=== PATIENT | male | born 1985 | race Caucasian/White ===

== ENCOUNTER 2020-02-16 01:59 | Emergency (ER) | payer SELFPAY ==
--- NOTE | 2020-02-16 02:01 | ED.GENADUL_ITS ---
Discharge Plan Disposition Patient Disposition: [facility] Condition: Good Discharge Details Clinical Impression: Abrasion, multiple sites, Lip injury Primary Care Provider: Unknown,Unknown ED Provider: Phil Cabrera Home Meds and New Rx's Prescriptions: No Action No Known Home Meds RF: 0 Discharge Instructions Instructions: Head Injury (ED), Abrasion (ED) Additional Instructions: Keep your wounds clean and dry. Rinse your mouth with salt water especially after eating or drinking something until laceration healed. Ibuprofen or acetaminophen as needed for pain. Return to ED for worsening headache, mental status change, persistent vomiting, signs of wound infection. Discharge Data Discharge Date/Time-TO BE ENTERED AT DEPARTURE: 02/16/20 02:20 Medical Decision Making Patient with injuries to face and knee. Not forthcoming in what occurred or how it occurred. Is awake and alert currently with normal speech, mentation, gait. No facial bony tenderness. Right inner lip laceration that is superficial and does not require sutures. Abrasions and lacerations around the right knee and right thigh again nothing requiring sutures. Does not appear to have bony tenderness anywhere. Lungs are clear. He is neurologically intact. Wounds were cleaned up and he is offered ibuprofen. He is released into police custody. HPI General Mode of arrival: ambulatory . Date/Time Provider Initiated Documentation: 02/16/20 02:01 . Limitations to Documentation: no limitations . Information obtained by: patient, police and RN notes reviewed . HPI Narrative: Patient presents to ED in police custody for evaluation after being taken into custody. Patient not very forthcoming with what happened tonight. Police report that he was not in off during conversations with him as well as mental health. Here he is awake and alert and appropriate. Complains of face and lip pain as well as knee discomfort. Will not elaborate on anything that occurred. No complaint of headache, chest pain, abdominal pain, shortness of breath. Related Data Home Medications Medication Instructions Recorded Confirmed Unknown [No Known Home Meds] 02/16/20 02/16/20 Allergies Allergy/AdvReac Type Severity Reaction Status Date / Time No Known Allergies Allergy Unverified 02/16/20 02:12 Review of Systems Narrative: As documented in HPI otherwise negative as below. Const: no fever, chills Resp: no cough, SOB CV: no CP GI: no abdominal pain, nausea, vomiting Neuro: no headache, focal weakness, confusion [facility] Medical History HTN (hypertension) Surgical History No significant past surgical history Social History Smoking/Tobacco Use Status: Current every day Tobacco Type: cigarettes Drug use: Occasionally Substance use type: marijuana Do you feel safe at home: Yes Do you feel safe in your relationship?: Yes Exam Narrative Exam Narrative: Vitals: Afebrile. Slight tachycardia and elevated blood pressure. Normal room air pulse ox. Const: WDWN male in NAD. Handcuffed and in police custody. HEENT: NC. No facial bony tenderness. No nasal bony tenderness. Dried blood bilateral nares and upper lip. Dentition intact. Superficial laceration left inside upper lip. Eyes: PERRL and EOMI Neck: Supple. Trachea midline. No midline tenderness. Lungs: Normal respiratory effort. Lungs are clear. Cor: RRR without murmur/gallop. Neuro: A+O x 3. Normal speech, mentation, gait. Cranial nerves II - XII grossly intact. No gross motor or sensory deficit. Ext: No obvious deformity. Upper extremities and handcuffs behind his back. Lower extremities with normal range of motion. Skin: Warm and dry. Multiple superficial lacerations and abrasions to the right knee and thigh. Nothing requiring sutures.
[2020-02-16 02:05] VITALS: BP 137/97; PULSE 110; RESP 20; TEMP 35.7; O2SAT 100
[2020-02-16] MEDS: Ibuprofen 600 MG TAB PO (02:17)
== END 2020-02-16 02:20 | disposition home or self-care (01) ==
LOC: ER 02:24
PROVIDERS: Emergency Provider Emergency Medicine
DX: S01.511A Laceration without foreign body of lip, initial encounter (principal); S80.211A Abrasion, right knee, initial encounter; R51 Headache; Y04.0XXA Assault by unarmed brawl or fight, initial encounter; Y92.149 Unspecified place in prison as the place of occurrence of the external cause; I10 Essential (primary) hypertension
CPT/HCPCS: 99285; 99283

== ENCOUNTER 2020-04-16 09:16 | Emergency (ER) | payer MEDICAID, SELFPAY ==
[2020-04-16 09:22] VITALS: BP 138/82; PULSE 100; RESP 20; TEMP 36.3; O2SAT 100
--- NOTE | 2020-04-16 09:23 | W.ED.GENAD ---
Discharge Plan Disposition Patient Disposition: HOME Condition: Stable Discharge Details Clinical Impression: Acute UTI Primary Care Provider: Unknown,Unknown ED Provider: Alix Fermin Home Meds and New Rx's Prescriptions: New cephalexin 500 mg tablet 500 mg PO BID 7 Days Qty: 14 RF: 0 Discharge Instructions Instructions: Urinary Tract Infection in Men (ED) Additional Instructions: Follow up with primary care provider in 3-5 days. Return to ED sooner if any worsening or concerns. Increase oral fluids. Please take Tylenol or Ibuprofen with food every 4-6 hours as needed for pain and swelling. Take antibiotics as directed. Culture results will return in 48 to 72 hours. If you are positive you will be notified. Discharge Data Discharge Date/Time-TO BE ENTERED AT DEPARTURE: 04/16/20 10:20 Medical Decision Making 34-year-old male presents to the ER with dysuria, penile discharge and some right groin swelling for approximately 1 week. He denies any concern for STD. Denies any testicle swelling. No fever no abdominal pain no nausea vomiting diarrhea. Urinalysis collected and sent for gonorrhea chlamydia and urinalysis. Culture is pending at this time. Urine shows specific gravity greater than 1030, 30 protein, trace ketones, trace blood, small leukocytes greater than 50 WBCs. No nitrates culture is pending at this time. Patient was treated empirically for possible gonorrhea chlamydia due to penile discharge. He was given 500 mg Rocephin IM and 1 g azithromycin p.o. in department. Prescription written for cephalexin 5 mg twice a day x7 days for UTI. Instructed on pelvic rest and abstinence until partners are tested and treated, verbalized understanding. HPI General Mode of arrival: ambulatory. Date/Time Provider Initiated Documentation: 04/16/20 09:17. Limitations to Documentation: no limitations. Information obtained by: patient. HPI Narrative: 34-year-old male presents to the ER with dysuria, penile discharge and some right groin swelling for approximately 1 week. He denies any concern for STD. Denies any testicle swelling. No fever no abdominal pain no nausea vomiting diarrhea. Related Data Home Medications Medication Instructions Recorded Confirmed cephalexin 500 mg PO BID 7 Days #14 tab 04/16/20 Previous Rx's Medication Instructions Recorded cephalexin 500 mg PO BID 7 Days #14 tab 04/16/20 Allergies Allergy/AdvReac Type Severity Reaction Status Date / Time No Known Allergies Allergy Unverified 02/16/20 02:12 General SONIA: 3 Review of Systems Narrative: Constitutional: Negative for weight loss, alert and oriented, well groomed, normal body habitus, appears comfortable. HEENT: Denies trauma, headaches, blurry vision, nasal discharge, sore throat, trouble swallowing. Chest: Denies chest pain, palpitations, irregular rhythm, hypertension. Respiratory: Denies Shortness of breath, cough, hemoptysis. GI: Denies abdominal pain, nausea, vomiting, diarrhea, constipation. : Denies flank pain, rectal bleeding. Positive dysuria positive penile discharge. Neuro: Denies dizziness, blurry vision, weakness, syncope, headache or facial numbness. Hematologic: Denies easy bruising, intolerance to heat or cold, hair loss. [facility] Medical History HTN (hypertension) Surgical History No significant past surgical history Social History Smoking/Tobacco Use Status: Current every day Tobacco Type: cigarettes Smoking risk assessment performed?: Yes Drug use: Occasionally Substance use type: marijuana Do you feel safe at home: Yes Do you feel safe in your relationship?: Yes Exam Narrative Exam Narrative: Constitutional: Alert and oriented x3. Appears stated age. Normal body habitus. Head: Normocephalic, no trauma. Eyes: Pupils PERRLA, Red reflex noted, EOM's intact. Eyelids symmetrical without lesions, discharge, or swelling. ENT: Bilateral TM's WNL, External ear normal to inspection, no mastoid TTP, swelling, or erythema, Nasal turbinates WNL, no nasal discharge. Normal dentition, Posterior pharynx WNL, no exudate. Chest: RRR, Normal S1, S2, distal pulses intact. Resp: Lungs clear to auscultation bilaterally, no wheezes, rales, or rhonchi. Genitourinary: [employer] at bedside for witness, no external lesions noted to the penile shaft or meatus, there is some clearish type discharge noted from the ureteral meatus. No significant swelling to the testicles no tenderness with palpation, no groin swelling or redness noted. Male General Exam: Yes normal external exam Penis: normal penis Meatus: meatal discharge Scrotum: scrotum normal Testes: normal
[2020-04-16 09:38] LABS: Bilirubin Negative (Negative); Blood Trace-intact (Negative); Clarity Sl Cloudy (Clear); Glucose Negative (Negative); Ketones Trace mg/dL (Negative); Leukocyte Esterase Small (Negative); Nitrite Negative (Negative); Specific Gravity >= 1.030 (1.005-1.025); Urobilinogen 0.2 EU/dL (Up TO 0.2)
[2020-04-16] MEDS: Azithromycin 250 MG TAB 1000 MG PO (09:53)
[2020-04-16] MEDS: cefTRIAXone 250 MG VIAL (09:53)
[2020-04-16 10:09] LABS: C & S Indicated? Yes; WBC >50 HPF (0-5)
[2020-04-16 10:18] VITALS: BP 115/72; PULSE 100; RESP 20; TEMP 36.4; O2SAT 98
--- NOTE | 2020-04-16 11:12 | NUR.NOTE ---
Referral to Care Management to establish pcp.Nursing Note:
--- NOTE | 2020-04-17 11:57 | PDOC.ERCMPRO ---
- If Service Date Differs Date of service: 04/17/20 Time of Service: 11:57 Care Management Progress Note Jez is seen in the ED on 04/16/20 for a UTI. At the request of Alix Fermin NP, CM coordinates a referral to Kendra Sutherland MD, on-call provider, of [facility], to assist Jez in obtaining a follow up appointment and in establishing care with a PCP. He has Medicaid for insurance.
[2020-04-18 23:06] LABS: Chlamydia amplified RNA Negative (Negative); Source URINE
[2020-04-20 10:46] LABS: N gonorrhoeae amplified RNA Positive (Negative)
--- NOTE | 2020-04-20 11:37 | W.ED.FU ---
Urine culture positive for gonorrhea. Patient was treated with 500 mg Rocephin IM on his recent ED visit for possible gonorrhea. Attempted to call phone number listed on chart but no answer and unable to leave voicemail. Will send patient paper copy of his results to his listed address.
--- NOTE | 2020-05-03 11:14 | NUR.NOTE ---
Nursing Note:Attempted to mail Chlamydia/GC results to patient. The results came back RETURN TO SENDER. Ca Celestin
--- NOTE | 2020-05-03 11:24 | NUR.NOTE ---
Nursing Note: Positive result attempted to be mailed, received back today. No good address or phone number for pt. Pt had already received treatment for this proactively by provider on date of service. Attempted to verify with [facility] lab in [place] @ [phone] if reporting to [place] was done direct from their lab or if our lab had to report this. Transferred to Reportable Disease division and left @ 1123 on today's date with phone number for ED left for clarification.
--- NOTE | 2020-05-03 11:30 | NUR.NOTE ---
Nursing Note: Clarified with our in house lab, any positive send outs to [facility] are reported to state of [place] by Rubio Cruz. No further f/u is required for reporting.
--- NOTE | 2020-05-03 11:41 | NUR.NOTE ---
Nursing Note: Mailing address from pt's own self-subscribed Medicaid used to send results by mail after [employer]'s approval.
--- NOTE | 2020-05-07 12:12 | W.ED.FU ---
Date of service: 05/07/20 Time of Service: 12:12 Follow Up Plan: Call made and spoke with patient regarding results of positive for gonorrhea. Patient verbalized understanding. Patient denies having any further symptoms at this time. All questions and concerns were answered to the best my ability.
== END 2020-04-16 10:20 | disposition home or self-care (01) ==
PROVIDERS: Emergency Provider Registered Nurse Emergency
DX: A54.09 Other gonococcal infection of lower genitourinary tract (principal); N39.0 Urinary tract infection, site not specified; I10 Essential (primary) hypertension
CPT/HCPCS: 87491; 87591; 96372; 99284; 81003; 81015; 87086; 99283; J0696

== ENCOUNTER 2020-07-06 17:10 | Emergency (ER) | payer MEDICAID, SELFPAY ==
--- NOTE | 2020-07-06 17:14 | ED.GENADUL_ITS ---
Discharge Plan Disposition Patient Disposition: HOME Condition: Stable Discharge Details Clinical Impression: Cellulitis and abscess of upper extremity Primary Care Provider: None,None ED Provider: Carolina Cross Home Meds and New Rx's Prescriptions: New clindamycin HCl 150 mg capsule 450 mg PO TID 7 Days Qty: 63 RF: 0 Discharge Instructions Instructions: Cellulitis (ED) Additional Instructions: Your abscess was drained today. Please keep this area clean, dry and covered. Elevate the extremity and try to rest. Please take the antibiotics as prescribed. Even if symptoms improve, please take the entire course. Please return tomorrow afternoon for reevaluation. I will refer you to primary care as well, care management will reach out to you to schedule follow-up appointment. If in the meantime, you develop fever/chills, spreading of the redness or other new/worsening to seek care urgently once again Covid testing is pending for your upper respiratory infection. Please quarantine until his results have returned. Stand Alone Forms: PENDING COVID-19 TESTING, Work Release Medical Decision Making Patient is a pleasant 34-year-old [id number] male presenting today with chief complaint of left arm discomfort. He reports that he noted small abrasion on the dorsal aspect of the left hand a few days ago. As well he began developing erythema around the second 3 days ago. Since then, the erythema has been spreading despite noting the area of swelling to the dorsal aspect of the hand as the source of the abrasion. He denies any numbness or tingling. Has had no fevers or chills. Around the same time he began developing the symptoms, he and his family all began having symptoms of upper respiratory infection with rhinorrhea, congestion and cough. He does report a diminished sense of taste. Has not had any fevers. No difficulty breathing or shortness of breath. On exam, patient does have some clear rhinorrhea. He has normal posterior oropharynx, lungs are clear. Patient is afebrile, O2 96% on room air. Exam of the left upper extremity significant for an abscess approximately 3 cm x 1.5 cm. The proximal aspect of this is blanched and does have an overlying scab. Surrounding erythema on the dorsal aspect of the hand. None on the palmar side at the hand. This does not involve the digits. He is full range of motion of all of his fingers. No evidence to suggest intra-articular infection or ligamentous involvement. Cellulitis surrounding the abscess does come approxim ately anything 1 cm streaks that comes just proximal to the elbow. Patient I discussed concerns. His upper respiratory infection, particularly as this does involve a number of members of his family, has been concerned for potential COVID-19. We will test him today. He does not appear to have any severe symptoms, is not hypoxic. Patient also has findings consistent with abscess and cellulitis. Cellulitis does sound to have been evolving over the past 24 hours and I do feel that dosing of IV antibiotics would be appropriate. We will dose with IV clindamycin. He does not appear systemically ill. We also discussed the risk/benefits as well as expected procedural steps associated with incision and drainage. He voiced understanding and wished to proceed. Please see procedure note. Patient tolerated this well. It was performed using standard sterile technique. A copious amount of thick, purulent discharge was expressed. This was sent for culture. Patient tolerated procedure well. Loculations were broken up and abscess was irrigated. Patient will continue on oral clindamycin. He does not have a primary care. I have asked her care management to ensure that he has follow-up this week. However, in the interim I would like for him to return for wound check tomorrow. Work note will be given. Patient will be tested for COVID-19 and will quarantine until his results have returned. Strict return precautions were discussed. All of his questions and concerns were addressed and he is in agreement this plan HPI General Mode of arrival: ambulatory . Date/Time Provider Initiated Documentation: 07/06/20 17:13 . Limitations to Documentation: no limitations . Information obtained by: patient and RN notes reviewed . History of Present Illness 34 year old M presents to the emergency department with the chief complaint of cellulitis left hand, described as moderate, with intensity rated at 8. Quality is described as burning and aching, and is localized to the left and upper extremity. Patient reports no radiation. Patient started experiencing this day(s) (3) and it has been constant. Immobilization improves symptom(s), Movement worsens symptoms . Patient notes cough; denies chest pain, diaphoresis, fever/chills, loss of appetite, nausea/vomiting, shortness of breath and weakness. Patient did receive the following treatments prior to arrival, none Related Data Home Medications Medication Instructions Recorded Confirmed clindamycin HCl 450 mg PO TID 7 Days #63 cap 07/06/20 Previous Rx's Medication Instructions Recorded clindamycin HCl 450 mg PO TID 7 Days #63 cap 07/06/20 Allergies Allergy/AdvReac Type Severity Reaction Status Date / Time No Known Allergies Allergy Unverified 02/16/20 02:12 General SONIA: 3 Review of Systems Constitutional Constitutional: Reports as per HPI and Denies headache(s) Eyes Eyes: Reports as per HPI, Denies eye discharge and Denies irritation ENT Ears, Nose, Mouth, and Throat: Reports as per HPI and Denies headache(s) Cardiovascular Cardiovascular: Reports as per HPI, Denies chest pain and Denies dyspnea Respiratory Respiratory: Reports as per HPI and Denies dyspnea Gastrointestinal Gastrointestinal: Reports as per HPI, Denies abdominal pain, Denies change in bowel habits, Denies nausea and Denies vomiting Integumentary/Breasts Skin/Breast: Reports as per HPI and Reports erythema Neurologic Neurologic: Reports as per HPI and Denies headache(s) [facility] Medical History HTN (hypertension) Surgical History No significant past surgical history Social History Smoking/Tobacco Use Status: Current every day Tobacco Type: cigarettes Smoking risk assessment performed?: Yes Alcohol Intake: former Drug use: Occasionally Substance use type: marijuana Current gender identity: male Do you feel safe at home: Yes Do you feel safe in your relationship?: Yes Exam Const General: cooperative, healthy appearing, comfortable, no acute distress, well developed and well groomed Nutritional Appearance: average body habitus and well nourished Orientation: alert and awake [facility] Head: normal to inspection, normocephalic and atraumatic Ears: hearing grossly normal bilaterally, external ears normal and TM's normal bilaterally General nose exam: external nose normal and nares normal Face and sinus: normal facial exam, sinuses nontender and face symmetric Mouth: oral mucosae normal, lip normal, tongue normal, oropharynx normal and moist mucous membranes Teeth and gingiva: dentition normal Throat: posterior oropharynx normal, tonsils normal and uvula midline Eyes General: appearance normal, both eyes and all related structures Neck Neck: normal visual inspection, full ROM, no lymphadenopathy and no meningeal signs Resp Effort & Inspection: normal respiratory effort, able to speak in complete sentences and no respiratory distress Auscultation: clear to auscultation bilaterally, no rales, no rhonchi and no wheezes Cardio Rate: regular rate Rhythm: regular rhythm Heart Sounds: S1 normal and S2 normal Skin General skin exam: erythema Neuro General: patient alert and patient awake Cognition: normal cognition Speech: speech normal Gait: normal gait Extrem Right upper extremity: normal to inspection Left upper extremity: full ROM, normal capillary refill and no joint enlargement Hand/finger images: 1. area of palpable abscess 2. area of cellulitis, thin 1cm thick streak comes up just proximal to the elbow. No lymphadenopathy. No pain in the abscess. No induration. Patient has full range of motion both active and passive without evidence of discomfort at the elbow wrist and digit. Psych Appearance: grossly normal and well kempt Mental Status: mental status grossly normal Speech and Movement: speech and movement normal Procedures Abscess I/D Site: Hand Side (if applicable): Left Sedation/analgesia: None Local Anesthetic: Lidocaine 1% and With Epi Amount of anesthesia used (mL): 5 Technique: Incised with #11 Blade Amount of fluid expressed (mL): 5 Irrigation: Yes Packing used?: None Complications: Other (none)
[2020-07-06 17:17] VITALS: BP 151/90; PULSE 109; RESP 16; TEMP 37.1; O2SAT 96
[2020-07-06] MEDS: CLINDAMYCIN 600 MG/50 ML BAG 100 MG IVPB (18:10)
[2020-07-06 18:16] LABS: Abs Immature Grans 0.03 10^3/uL (0.0-0.06); Absolute Basophil Count 0.03 10^3/uL (0.0-0.2); Absolute Eosinophil Count 0.16 10^3/uL (0.0-0.7); Absolute Monocyte Count 1.07 10^3/uL (0.1-0.8); Basophils % 0.2; Eosinophils % 1.2; HCT 46.3 % (40.0-50.0); HGB 15.5 g/dL (13.5-17.5); Immature Grans % 0.2; MCH 29.3 pg (27.0-33.0); MCHC 33.5 % (32.0-36.0); MCV 87.5 fL (80-95); MPV 9.9 fL (8.0-11.0); Monocytes % 8.2; Neutrophils % 82.2; Nucleated RBC 0 %; Platelet Count 215 10^3/uL (130-400); RBC 5.29 10^6/uL (4.36-5.78); RDW 12.5 % (11.8-14.1); WBC 13.06 10^3/uL (4.4-10.8)
[2020-07-06 18:17] LABS: Absolute Lymphocyte Count 1.04 10^3/uL (1.2-3.4); Absolute Neutrophil Count 10.74 10^3/uL (1.2-6.7)
[2020-07-06 18:32] LABS: ALT 26 U/L (16-63); AST 15 U/L (15-37); Albumin 3.9 g/dL (3.4-5.0); Alkaline Phosphatase 92 U/L (46-116); Anion Gap 8.7 mmol/L (3-11); BUN 13 mg/dL (7-18); Bilirubin, Total 0.4 mg/dL (0.2-1.0); CO2 29.3 mmol/L (21.0-32.0); Calcium 8.9 mg/dL (8.5-10.1); Chloride 102 mmol/L (98-107); Glucose 110 mg/dL (74-106); Potassium 3.8 mmol/L (3.5-5.1); Sodium 140 mmol/L (136-145); Total Protein 8.1 g/dL (6.4-8.2)
[2020-07-06] MEDS: Normal Saline 1,000 ML 1000 ML IV (18:35)
[2020-07-06] MEDS: Normal Saline Flush 10 ML SYR IVP (18:44)
[2020-07-06 19:30] VITALS: BP 148/93; PULSE 103; RESP 16; O2SAT 97
--- NOTE | 2020-07-06 19:54 | NUR.NOTE ---
REFERRAL SENT TO CM FOR HELP WITH ESTABLISHING pCP END OF WEEK Luis Antonio Tello Note:
--- NOTE | 2020-07-07 12:51 | NUR.NOTE ---
Nursing Note: Lab called with positive MRSA result. Pt was given prescription for clindamycin. Dr. Robbin loco. Ca Celestin
[2020-07-08 12:42] LABS: COVID-19 RT-PCR UVMMC Result Negative (Negative)
--- NOTE | 2020-07-09 11:59 | NUR.NOTE ---
07/09/20 @ [id number], left message on voicemail to return call to ED for test results.
== END 2020-07-06 19:50 | disposition home or self-care (01) ==
PROVIDERS: Emergency Provider Physician Assistant
DX: L03.114 Cellulitis of left upper limb (principal); L02.414 Cutaneous abscess of left upper limb; B95.62 Methicillin resistant Staphylococcus aureus infection as the cause of diseases classified elsewhere; Z03.818 Encounter for observation for suspected exposure to other biological agents ruled out
CPT/HCPCS: 10060; 36415; 80053; 87077; 90471; 96361; 96365; 99282; U0003; 85025; 87070; 87186; 87205; 99281

== ENCOUNTER 2020-07-08 12:05 | Emergency (ER) | payer MEDICAID, SELFPAY ==
--- NOTE | 2020-07-08 12:09 | ED.GENADUL_ITS ---
Discharge Plan Disposition Patient Disposition: HOME Condition: Stable Discharge Details Clinical Impression: Cellulitis and abscess of upper extremity, Folliculitis Primary Care Provider: Ghassan Faulkner ED Provider: Paul Isaacs Home Meds and New Rx's Prescriptions: New ibuprofen 800 mg tablet 800 mg PO Q8H PRNQty: 30 RF: 0 Continued clindamycin HCl 150 mg capsule 450 mg PO TID 7 Days Qty: 63 RF: 0 Discharge Instructions Instructions: Cellulitis (ED), Folliculitis (ED) Additional Instructions: Your wound on your hand looks like it is improving. Keep the area clean and dry, change antibiotic dressing daily. You may apply warm compresses to your hand and to your folliculitis. No additional antibiotics required for the folliculitis as you are already taking clindamycin. I recommend taking clindamycin as directed. Please watch for new or worsening symptoms and return to the ER for any concerns. It appears as though on Monday my colleague set you up with care management, please continue to talk with them to set up outpatient primary care follow-up. Medical Decision Making Patient presents for a I&D reevaluation. After reviewing the medical record from 2 days ago and by the patient's account, his infection appears to be improving. No signs of lymphangitic streaking. The area is very localized to the hand and wrist. Full range of motion. Neuro, vascular, tendon intact. Appears as I would expect status post I&D 2 days ago. Patient also requests that I evaluate his ingrown hair. It appears as though he had a small area of folliculitis to his perineum which he tells me he squeezed and blood came out. There is no tenderness, fluctuance, induration, pointing abscess. At this time there is no indication for I&D. Patient is already taking clindamycin, no need for additional antibiotic therapy. Recommend warm soaks or compresses to his perineum. His left hand was again dressed with an antibiotic dressing. Patient has no additional questions or concerns and is comfortable discharge at this time. Medical Records Medical records reviewed: Yes I reviewed the patient's medical records. HPI General Mode of arrival: ambulatory . Date/Time Provider Initiated Documentation: 07/08/20 12:07 . Limitations to Documentation: no limitations . Information obtained by: patient . HPI Narrative: This is a 34-year-old gentleman, [id number], who was seen in the ER 2 days ago. At that time he had a left hand incision and drainage of an abscess. He was placed on clindamycin. He was told to come back to the ER for wound reevaluation, unable to come yesterday so came today. He reports that his redness is much improved. Pain is improving. Denies numbness, tingling, weakness, fever. The wound is still draining. Tetanus status is up-to-date. He reports that under his scrotum yesterday he noticed ingrown hair, he squeezed it and blood came out, is now requesting that this gets checked as well. Denies scrotal or penile pain. Denies dysuria. No additional concerns or complaints. 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 Related Data Home Medications Medication Instructions Recorded Confirmed clindamycin HCl 450 mg PO TID 7 Days #63 cap 07/06/20 ibuprofen 800 mg PO Q8H PRN #30 tab 07/08/20 Previous Rx's Medication Instructions Recorded clindamycin HCl 450 mg PO TID 7 Days #63 cap 07/06/20 ibuprofen 800 mg PO Q8H PRN #30 tab 07/08/20 Allergies Allergy/AdvReac Type Severity Reaction Status Date / Time No Known Allergies Allergy Unverified 02/16/20 02:12 General SONIA: 3 Review of Systems Constitutional Constitutional: Denies fever(s) Gastrointestinal Gastrointestinal: Denies abdominal pain, Denies nausea and Denies vomiting Genitourinary Genitourinary: Denies dysuria and Denies testicular pain Musculoskeletal Musculoskeletal: Denies myalgias, Denies numbness and Denies tingling Neurologic Neurologic: Denies numbness and Denies tingling [facility] Medical History HTN (hypertension) Surgical History No significant past surgical history Social History Smoking/Tobacco Use Status: Current every day Tobacco Type: cigarettes Smoking risk assessment performed?: Yes Alcohol Intake: former Drug use: Current Sobriety Substance use type: former substance user, marijuana and IV drugs Details: Occasional marijuana Current gender identity: male Do you feel safe at home: Yes Do you feel safe in your relationship?: Yes Exam Const General: cooperative, healthy appearing, comfortable and no acute distress Orientation: alert and awake [facility] Head: normal to inspection, normocephalic and atraumatic Eyes General: appearance normal, both eyes and all related structures Conjunctivae: conjunctivae normal Sclera: sclerae normal Neck Neck: normal visual inspection, full ROM, trachea midline and supple Resp Effort & Inspection: normal respiratory effort and able to speak in complete sentences Cardio Rate: regular rate Rhythm: regular rhythm Male General Exam: Yes normal external exam Penis: normal penis Meatus: meatus normal Scrotum: scrotum normal Testes: normal Other: There is a area of erythema at the base of a hair follicle in the perineum. There is no warmth, induration, fluctuance, tenderness. No pointing abscess or weeping. Skin General skin exam: no rashes or lesions noted Neuro General: patient alert, patient awake, moves all extremities and no focal motor deficits Sensory Exam: no sensory deficits noted Extrem Hand/finger images: 1. Localized erythema, warmth, mild discomfort. Centrally there is a draining wound. Neuro, vascular, tendon intact. Normal capillary refill. No bony point tenderness. Full range of motion. There is no lymphangitic streaking. Psych Appearance: grossly normal Mental Status: mental status grossly normal
[2020-07-08 12:15] VITALS: BP 120/78; PULSE 102; RESP 18; TEMP 37.4; O2SAT 98
== END 2020-07-08 13:16 | disposition home or self-care (01) ==
PROVIDERS: Emergency Provider Physician Assistant; PCP Nurse Practitioner Family
DX: L02.512 Cutaneous abscess of left hand (principal); L03.114 Cellulitis of left upper limb; Z48.01 Encounter for change or removal of surgical wound dressing; L73.9 Follicular disorder, unspecified
CPT/HCPCS: 99282

== ENCOUNTER 2020-07-17 05:17 | Emergency (ER) | payer MEDICAID, SELFPAY ==
[2020-07-17 05:20] VITALS: BP 145/99; PULSE 87; RESP 16; TEMP 36.9; O2SAT 96
--- NOTE | 2020-07-17 05:21 | W.ED.GENAD ---
Discharge Plan Disposition Patient Disposition: HOME Condition: Good Discharge Details Clinical Impression: Finger laceration, Finger fracture Primary Care Provider: Ghassan Faulkner ED Provider: Phil Cabrera Meds and New Rx's Prescriptions: New cephalexin 500 mg capsule 500 mg PO Q8H Qty: 15 RF: 0 Continued ibuprofen 800 mg tablet 800 mg PO Q8H PRNQty: 30 RF: 0 Discharge Instructions Instructions: Finger Fracture (ED), Finger Laceration (ED) Additional Instructions: There is a fracture in addition to the laceration. Tendons and nerves appear to be intact but due to pain, swelling and crush injury this will need to be reevaluated next week. Try to keep the hand elevated with splint and dressing in place. Antibiotic as directed. Motrin or Tylenol as needed for pain. Contact orthopedics today to make appointment for Monday or Monday of next week for recheck. Return to ED over the weekend if any issues. Stand Alone Forms: Work Release Referrals: Daniel Berrios MD [ [facility] STAFF PHYSICIAN] - Medical Decision Making Digital block of the right long finger done. X-ray ordered. Tetanus up-to-date. X-ray with transverse minimally displaced fracture proximal distal phalanx. No articular involvement. Wound irrigated. Sutures placed. Xeroform dressing applied and finger placed in baseball splint in extension. Will be started on Keflex. Refer to orthopedics for recheck Monday or Monday. Keep hand elevated and leave dressing and splint in place. Motrin or Tylenol as needed for pain. Return to ED if any signs of infections or problems. HPI General Mode of arrival: ambulatory. Date/Time Provider Initiated Documentation: 07/17/20 05:21. Limitations to Documentation: no limitations. Information obtained by: patient and RN notes reviewed. HPI Narrative: Patient presents to ED with right long finger injury. Patient is right-hand dominant. Patient got his finger caught between a press and a piece of metal. Sustained laceration on the palmar aspect of the finger. Crush injury to the tip. Complains of tingling in his fingertips. Denies other injury. He is up-to-date on tetanus. Related Data Home Medications Medication Instructions Recorded Confirmed ibuprofen 800 mg PO Q8H PRN #30 tab 07/08/20 07/17/20 cephalexin 500 mg PO Q8H #15 cap 07/17/20 Previous Rx's Medication Instructions Recorded ibuprofen 800 mg PO Q8H PRN #30 tab 07/08/20 cephalexin 500 mg PO Q8H #15 cap 07/17/20 Allergies Allergy/AdvReac Type Severity Reaction Status Date / Time No Known Allergies Allergy Unverified 07/17/20 05:29 General SONIA: 4 Review of Systems Constitutional Constitutional: Denies fever(s) Cardiovascular Cardiovascular: Denies dyspnea Respiratory Respiratory: Denies cough and Denies dyspnea Integumentary/Breasts Skin/Breast: Reports wounds [facility] Medical History HTN (hypertension) Surgical History No significant past surgical history Social History Smoking/Tobacco Use Status: Current every day Tobacco Type: cigarettes Smoking risk assessment performed?: Yes Alcohol Intake: former Drug use: Current Sobriety Substance use type: former substance user, marijuana and IV drugs Details: Occasional marijuana Current gender identity: male Do you feel safe at home: Yes Do you feel safe in your relationship?: Yes Exam Narrative Exam Narrative: Const: WDWN male in NAD. HEENT: NC/AT. Normal facial exam. Eyes: Normal conjunctiva and sclera. Neck: Supple. Trachea midline. Lungs: Normal respiratory effort. Neuro: A+O x 3. Normal speech, mentation, gait. Cranial nerves II - XII grossly intact. No gross motor or sensory deficit. Ext: Right hand with 1 cm laceration palmar aspect at the level of the DIP of the long finger. Bruising to the pad. Nail intact with no subungual hematoma. Abrasion to the dorsal aspect of the finger. Complains of tingling but sensation appears to be intact distally. Cap refill intact distally. Flexion of the DIP intact though painful. Flexion of PIP intact. Extension intact. Rest of the right hand normal. Procedures Laceration Laceration 1: Site: hand Side (If applicable): right Size (cm): 1 Description: linear Depth: simple, single layer Pre-repair: wound explored and irrigated extensively Skin layer closed with: nylon Size (cm): 4-0 Number of sutures: 3 Technique: simple, interrupted Nerve Block Nerve Block 1: Local Anesthetic: Lidocaine 1% Amount of anesthesia used (mL): 3 Side: right Nerve Blocks: digital Procedure Successful: Yes Patient Tolerated Procedure: well and no complications Complications: inadequate anesthesia
[2020-07-17] MEDS: Lidocaine 1% Multi-Dose 50 ML VIAL IJ (05:43)
--- NOTE | 2020-07-17 05:43 | DI.RAD_ITS ---
EXAM: XR FINGER RT MIDDLE CLINICAL HISTORY: trauma. TECHNIQUE: 2D digital imaging was performed. COMPARISON: No exams were available for comparison FINDINGS: There is a fracture seen extending transversely through the proximal aspect of the distal phalanx of the middle finger. There is slight separation and dorsal angulation. Air is seen anteriorly in the soft tissues near the nail bed. No foreign body is seen. IMPRESSION: Fracture of the distal phalanx of the middle finger. DATA REPOSITORY: RADIATION DOSE DELIVERED:
--- NOTE | 2020-07-17 06:00 | DI.VRAD_ITS ---
PROCEDURE INFORMATION: Exam: XR Right Finger(s) Exam date and time: 07/17/2020 5:44 AM Age: 34 years old Clinical indication: Injury or trauma; Other: Crush injury; Work related; Crushing; Right; Middle finger; Injury date: 07/17/20; Injury details: Crushed between two pieces of equipment TECHNIQUE: Imaging protocol: XR Right fingers. Views: Minimum 2 views. COMPARISON: No relevant prior studies available. FINDINGS: Bones/joints: Transverse minimally displaced nonangulated fracture base of the distal phalanx of the 3rd digit. No articular involvement. Alignment near anatomic. No other significant osseous abnormalities. Joint spaces unremarkable. Soft tissues: Soft tissue swelling distal 3rd digit. No foreign body. IMPRESSION: Transverse minimally displaced nonangulated fracture base of the distal phalanx of the 3rd digit. No articular involvement. Alignment near anatomic. Dictated and Authenticated by: Carlos Monroy MD. Ordering:DERRELL Villarreal MD
[2020-07-17 06:19] VITALS: BP 135/90; PULSE 85; RESP 18; O2SAT 97
[2020-07-17] MEDS: Cephalexin 500 MG CAP PO (06:19)
== END 2020-07-17 06:19 | disposition home or self-care (01) ==
PROVIDERS: Emergency Provider Emergency Medicine; PCP Nurse Practitioner Family
DX: S67.192A Crushing injury of right middle finger, initial encounter (principal); S62.632A Displaced fracture of distal phalanx of right middle finger, initial encounter for closed fracture; W31.1XXA Contact with metalworking machines, initial encounter
CPT/HCPCS: 12001; 26750; 73140

== ENCOUNTER 2020-07-22 16:14 | Emergency (ER) | payer MEDICAID, SELFPAY ==
[2020-07-22 16:20] VITALS: BP 141/89; PULSE 102; RESP 16; TEMP 36.7; O2SAT 98
--- NOTE | 2020-07-22 16:24 | ED.GENADUL_ITS ---
Discharge Plan Disposition Patient Disposition: HOME Discharge Details Clinical Impression: Finger laceration, Finger fracture Primary Care Provider: Ghassan Faulkner ED Provider: Carolina Cross Home Meds and New Rx's Prescriptions: Continued ibuprofen 800 mg tablet 800 mg PO Q8H PRNQty: 30 RF: 0 cephalexin 500 mg capsule 500 mg PO Q8H Qty: 15 RF: 0 Discharge Instructions Instructions: Finger Fracture (ED), Finger Laceration (ED) Additional Instructions: Please continue with previous instructions. Please continue with splint until reevaluated by orthopedics. Please keep your upcoming appointment with orthopedics. Please continue with the antibiotics as previously prescribed. May use Tylenol and/or ibuprofen as needed for discomfort. If you develop fever/chills, increased pain or other new/worsening symptoms please seek care urgently once again. Please avoid any undue pressure on this finger, no heavy lifting. Stand Alone Forms: Work Release Referrals: Ghassan Faulkner, [employer] [Primary Care Provider] - Daniel Berrios MD [ [facility] STAFF PHYSICIAN] - Medical Decision Making Patient is a pleasant 34-year-old [id number] male presents today for reevaluation of his right finger. Patient was seen here 4 days ago after crushing his finger. Was diagnosed with fracture. Patient also had laceration of cutting this. Laceration was closed. Patient was placed on Keflex. He reports he is not taking his antibiotics as prescribed. Patient has an appointment on 07/27/2020 with orthopedics. He states that his splint broke. 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 On exam, patient appears nontoxic. His incision appears well approximated with no evidence of infection. Limited range of motion of the DIP of the third digit of his right hand. Sensation is intact. Patient appears to be healing well with no evidence of infection. We will replace the splint. He will continue with antibiotic. He will give his upcoming appointment with orthopedics. We replaced his splint. Return precautions were discussed. All his questions and concerns were addressed and he is in agreement this plan. HPI General Mode of arrival: ambulatory . Date/Time Provider Initiated Documentation: 07/22/20 16:23 . Limitations to Documentation: no limitations . Information obtained by: patient and RN notes reviewed . History of Present Illness 34 year old M presents to the emergency department with the chief complaint of right middle finger pain, fracture, described as moderate, with intensity rated at 6. Quality is described as aching, and is localized to the right and upper extremity. Patient reports no radiation. Patient started experiencing this day(s) and it has been intermittent. Immobilization improves symptom(s), Movement worsens symptoms . Patient notes no other symptoms.. Patient did receive the following treatments prior to arrival, other (on Keflex) Related Data Home Medications Medication Instructions Recorded Confirmed ibuprofen 800 mg PO Q8H PRN #30 tab 07/08/20 07/22/20 cephalexin 500 mg PO Q8H #15 cap 07/17/20 07/22/20 Previous Rx's Medication Instructions Recorded ibuprofen 800 mg PO Q8H PRN #30 tab 07/08/20 cephalexin 500 mg PO Q8H #15 cap 07/17/20 Allergies Allergy/AdvReac Type Severity Reaction Status Date / Time No Known Allergies Allergy Unverified 07/17/20 05:29 General Stated Complaint: Orthopedic SONIA: 4 Review of Systems Constitutional Constitutional: Reports as per HPI, Denies chills, Denies fever(s), Denies headache(s) and Denies weakness ENT Ears, Nose, Mouth, and Throat: Denies headache(s) Cardiovascular Cardiovascular: Reports as per HPI Respiratory Respiratory: Reports as per HPI and Denies cough Musculoskeletal Musculoskeletal: Reports as per HPI and Denies tingling Integumentary/Breasts Skin/Breast: Reports as per HPI, Denies rash and Denies wounds Neurologic Neurologic: Reports as per HPI, Denies headache(s), Denies tingling, Denies paresthesias and Denies weakness [facility] Medical History HTN (hypertension) Surgical History No significant past surgical history Social History Smoking/Tobacco Use Status: Current every day Tobacco Type: cigarettes Smoking risk assessment performed?: Yes Alcohol Intake: former Drug use: Current Sobriety Substance use type: former substance user, marijuana and IV drugs Details: Occasional marijuana Current gender identity: male Do you feel safe at home: Yes Do you feel safe in your relationship?: Yes Exam Const General: cooperative, healthy appearing, comfortable, no acute distress, well developed and well groomed Nutritional Appearance: average body habitus and well nourished Orientation: alert and awake Resp Effort & Inspection: normal respiratory effort, able to speak in complete sentences and no respiratory distress Cardio Rate: regular rate Rhythm: regular rhythm Skin Trauma: laceration (DIP joint palmar side, right 3rd digit) Neuro General: patient alert and patient awake Cognition: normal cognition Speech: speech normal Gait: normal gait Motor: muscle tone normal throughout Sensory Exam: no sensory deficits noted Extrem Hand/finger images: 1. Patient is ecchymosis over the fingernail. The base is slightly blanched. I am concerned the patient will lose the nail. We did discuss this. He has good capillary refill. Sensation is intact. Patient has a laceration of the DIP joint that is held in place well with simple interrupted stitches. No erythema, warmth or drainage. No facial swelling. Patient does have limited range of motion of the DIP joints. Psych Appearance: grossly normal and well kempt Mental Status: mental status grossly normal Speech and Movement: speech and movement normal Course Vital Signs Vital signs: Vital Signs Temperature 36.7 C 07/22/20 16:20 Pulse 102 H 07/22/20 16:20 Respiratory Rate 16 07/22/20 16:20 Blood Pressure 141/89 H 07/22/20 16:20 Pulse Oximetry 98 07/22/20 16:20 Temperature 36.7 C 07/22/20 16:20 Temperature Source Skin 07/22/20 16:20 Pulse 102 H 07/22/20 16:20 Respiratory Rate 16 07/22/20 16:20 Blood Pressure 141/89 H 07/22/20 16:20 Blood Pressure Position Sitting 07/22/20 16:20 Pulse Oximetry 98 07/22/20 16:20 Oxygen Delivery Method Room Air 07/22/20 16:20 Oxygen Flow Rate 0 07/22/20 16:20 Pain Level 6 07/22/20 16:20
== END 2020-07-22 16:40 | disposition home or self-care (01) ==
PROVIDERS: Emergency Provider Physician Assistant; PCP Nurse Practitioner Family
DX: S67.192D Crushing injury of right middle finger, subsequent encounter (principal); S62.632D Displaced fracture of distal phalanx of right middle finger, subsequent encounter for fracture with routine healing; X58.XXXD Exposure to other specified factors, subsequent encounter; I10 Essential (primary) hypertension
CPT/HCPCS: 29125; 99283; 99282

== ENCOUNTER 2020-09-14 23:08 | Emergency (ER) | payer MEDICAID, SELFPAY ==
[2020-09-14] VITALS (8 sets, daily range): BP systolic 108–118; BP diastolic 62–71; PULSE 81–128; RESP 4–38; TEMP 36.6; O2SAT 25–99
--- NOTE | 2020-09-14 23:10 | W.ED.GENAD ---
Discharge Plan Disposition Patient Disposition: HOME Condition: Stable Discharge Details Clinical Impression: Overdose Primary Care Provider: None,None ED Provider: Niall Siegel Home Meds and New Rx's Prescriptions: New Narcan 4 mg/actuation spray,non-aerosol 4 mg intranasal Q2-3M PRNQty: 2 RF: 0 Continued ibuprofen 800 mg tablet 800 mg PO Q8H PRNQty: 30 RF: 0 Discharge Instructions Additional Instructions: you suffered from an opiate overdose and were observed for recurrent unreponsivness. Follow up with your primary care provider within 1 week if you feel more ill, have difficulty breathing or persistent vomit return to the emergency department Medical Decision Making 34 yo male with unknown medical history was driven in by his girlfriend after she states he was trying to use cocaine but placed in in a container that she had heroin in, which he did not know, and a few minutes later he became unresponsive. She Denies him taking any oral drugs. He arrives with eyes closed, not talking but will groan to painful stimuli and move extremities slightly to painful stimuli. She apparently had given him intranasal narcan prior to arrival, unclear exactly how much. He was placed on the monitor on arrival and given 4mg intranasal narcan and within a minute was answering questions slowly and following commands, does not know where he is currently or how he got here. Given the history and response to narcan suspect opiate overdose. He was initially hypoxic with respiratory rate of 4 but quickly increased to 100% with supplemental oxygen and now that he is awake iis currently stable, will continue to monitor and evaluate for possible coingestants. labs show mild low potassium otherwise unremarkable, he continues to be alert and is oriented to person place and time. He states this was accidental and declines meeting with production recovery operator. Will observe for 2 hours patient remains alert and oriented x4, stable without complaints. Still declines production recovery operator. Narcan prescribed, usual and customary return precautions given Differential Diagnosis Differential Diagnosis: opiate overdose, drug overdose HPI General Date/Time Provider Initiated Documentation: 09/14/20 23:09. Information obtained by: family (significant other). History of Present Illness 34 year old M presents to the emergency department with the chief complaint of overdose, Patient started experiencing this minute(s) (30) No relieving factors improve symptom(s), No exacerbating factors reported . Patient did receive the following treatments prior to arrival, other (girlfriend states she gave unknown amount of intranasal narcan) Related Data Home Medications Medication Instructions Recorded Confirmed ibuprofen 800 mg PO Q8H PRN #30 tab 07/08/20 07/22/20 naloxone [Narcan] 4 mg INTRANASAL Q2-3M PRN #2 ea 09/15/20 Previous Rx's Medication Instructions Recorded ibuprofen 800 mg PO Q8H PRN #30 tab 07/08/20 naloxone [Narcan] 4 mg INTRANASAL Q2-3M PRN #2 ea 09/15/20 Allergies Allergy/AdvReac Type Severity Reaction Status Date / Time No Known Allergies Allergy Unverified 07/28/20 10:39 General SONIA: 4 Review of Systems Unobtainable due to mental status PFSH Medical History HTN (hypertension) Surgical History No significant past surgical history Social History Smoking/Tobacco Use Status: Current every day Tobacco Type: cigarettes Smoking risk assessment performed?: Yes Alcohol Intake: former Drug use: Current Sobriety Substance use type: marijuana and IV drugs Details: Occasional marijuana Current gender identity: male Do you feel safe at home: Yes Do you feel safe in your relationship?: Yes Exam Const General: lethargic Orientation: obtunded HENMT Head: normal to inspection Ears: external ears normal General nose exam: external nose normal Mouth: moist mucous membranes Eyes General: appearance normal, both eyes and all related structures Neck Neck: normal visual inspection Resp Effort & Inspection: decreased respiratory effort Cardio Rate: regular rate Skin General skin exam: no rashes or lesions noted Neuro General: patient obtunded Extrem General: normal to inspection Psych Mental Status: mental status grossly normal
[2020-09-14] MEDS: Normal Saline 1,000 ML 1000 ML IV (23:31)
[2020-09-14 23:32] LABS: BE (Venous) 5 mmol/L (-2-3); HCO3 (Venous) 31 mmol/L (23-28); O2 Sat (Venous) 54 %; TCO2 (Venous) 28 mmol/L (24-29); pCO2 (Venous) 57 mmHg (41-51); pH (Venous) 7.34 (7.31-7.41); pO2 (Venous) 28 mmHg
[2020-09-14 23:34] LABS: Abs Immature Grans 0.04 10^3/uL (0.0-0.06); Absolute Basophil Count 0.03 10^3/uL (0.0-0.2); Absolute Lymphocyte Count 2.68 10^3/uL (1.2-3.4); Absolute Monocyte Count 0.86 10^3/uL (0.1-0.8); Absolute Neutrophil Count 6.17 10^3/uL (1.2-6.7); Basophils % 0.3; HCT 42.6 % (40.0-50.0); HGB 14.6 g/dL (13.5-17.5); Immature Grans % 0.4; Lymphocytes % 26.9; MCH 30.1 pg (27.0-33.0); MCHC 34.3 % (32.0-36.0); MCV 87.8 fL (80-95); MPV 9.4 fL (8.0-11.0); Monocytes % 8.6; Neutrophils % 61.8; Nucleated RBC 0 %; Platelet Count 240 10^3/uL (130-400); RBC 4.85 10^6/uL (4.36-5.78); RDW 12.1 % (11.8-14.1); RDW-SD 39.2 fL; WBC 9.98 10^3/uL (4.4-10.8)
[2020-09-14 23:47] LABS: ALT 36 U/L (16-63); AST 24 U/L (15-37); Albumin 4.1 g/dL (3.4-5.0); Alkaline Phosphatase 89 U/L (46-116); Anion Gap 9.8 mmol/L (3-11); BUN 17 mg/dL (7-18); Bilirubin, Total 0.3 mg/dL (0.2-1.0); CO2 30.2 mmol/L (21.0-32.0); CREATININE 1.3 mg/dL (0.70-1.30); Calcium 8.8 mg/dL (8.5-10.1); Chloride 104 mmol/L (98-107); Glucose 161 mg/dL (74-106); Potassium 3.1 mmol/L (3.5-5.1); Sodium 144 mmol/L (136-145); Total Protein 7.4 g/dL (6.4-8.2)
[2020-09-14 23:48] LABS: ETHANOL BLOOD < 3.0 mg/dL (<3)
[2020-09-15] VITALS (11 sets, daily range): BP systolic 96–108; BP diastolic 57–64; PULSE 80–100; RESP 16–24; O2SAT 97–99
[2020-09-15] MEDS: Potassium Chloride 10 MEQ CAPCR 40 MEQ PO (00:38)
--- NOTE | 2020-09-15 00:53 | NUR.NOTE ---
Addendum entered by Monica Palomares 09/15/20 02:19: Pt was given 4mg IN narcan approx 15 mins prior to arrival by the people who brought pt in. Original Note: Nursing Note: Pt taken out of car, backseat, by this RN and security sales manager. Pt cyanotic , snoring shallow respirations, BVM assist ventilations by engineering technician Debra as this RN brings pt to ED room 3 via stretcher. EDP Robbin and RN x 2 meet this RN in room. Pt diaphoretic, RR approx 8, BVM assist ventilations continued 15LMP by this RN, with visible chest rise. Pinpoint pupils.n Initial O2 sat 25% with quick O2 rise to 98% after approx 1min of assist ventilations. Pt now has RR approx 16 /min. This RN placed NC capnography on, pt now 97% room air and awakening. Pt reports I was shooting up some uppers and I don't know what happened.Pt reports last thing I remember was in the back of that car. Pt oriented to self, time of day, , events prior to and follows all commands. Pt able to move all extremities easily, respirations non labored , easy chest. Pt remains diaphoretic, color pink. Pt asking for cup of water. Pt remains on full cardiac monitoring,and remains room air with ETCO2 monitoring on. GCS 15.
== END 2020-09-15 01:15 | disposition home or self-care (01) ==
LOC: ER 09-15 00:21
PROVIDERS: Emergency Provider Emergency Medicine
DX: T40.601A Poisoning by unspecified narcotics, accidental (unintentional), initial encounter (principal); R09.02 Hypoxemia; R41.82 Altered mental status, unspecified
CPT/HCPCS: 36415; 36416; 80053; 82805; 82962; 96360; 99291; 80320; 83735; 85025; J2310

== ENCOUNTER 2021-05-03 17:48 | Emergency (ER) | payer MEDICAID, SELFPAY ==
[2021-05-03 17:56] VITALS: BP 146/79; PULSE 88; RESP 18; TEMP 36.4; O2SAT 100
--- NOTE | 2021-05-03 17:58 | W.ED.GENAD ---
Discharge Plan Disposition Patient Disposition: HOME Condition: Stable Discharge Details Clinical Impression: Dental infection Primary Care Provider: None,None ED Provider: Carolina Cross Home Meds and New Rx's Prescriptions: New penicillin V potassium 500 mg tablet 500 mg PO QID 6 Days Qty: 24 RF: 0 Continued ibuprofen 800 mg tablet 800 mg PO Q8H PRNQty: 30 RF: 0 Narcan 4 mg/actuation spray,non-aerosol 4 mg intranasal Q2-3M PRNQty: 2 RF: 0 Discharge Instructions Instructions: Penicillin V (By mouth), Dental Abscess (ED) Additional Instructions: Your history and exam are concerning for infection. I do not see evidence of abscess at this time. Please encourage hydration. Tylenol and/or Ibuprofen as needed for discomfort. Please take the antibiotics as prescribed, even if symptoms improve, please take the entire course. If you develop fevers/chills, headaches, swelling or other new/worsening symptoms please seek care urgently once again. You will need definitive care with a dentist or the infection will likely come back. Attached is a list of local dentists, please call tomorrow to schedule follow up. Referral for local primary care has been request. Please continue to work with [facility], you may call again tomorrow [phone]. Discharge Data Discharge Date/Time-TO BE ENTERED AT DEPARTURE: 05/03/21 19:51 Medical Decision Making Patient is a pleasant 35 year old male presenting today with c/c of right lower dental pain. He states that he has been having some discomfort in the area in question for the past month after fracturing a tooth. However, he states that at that time the pain was really only with chewing. Today, the patient reports that the pain has increased and has been more constant. He denies fevers/chills. No radiation of pain. He does not have a local dentist. On exam, patient appears nontoxic. Area of dental pain is at site of fractured right lower tooth. Along the buccal side, patient has some redness, tenderness with palpation. No swelling or fluctuance. No swelling under the tongue. No lymphadenopathy. No abnormalities in posterior oropharynx. Concerned for developing dental infection, will begin abx. Encouraged hydration. Advised on pain management. Patient states that he does not hav e aplace to live. Warming shelters close are closed secondary to COVID. Myself and secretarial staff tried to find warming skilled nursing but were unsuccessful. Patient given phone, he called 2-1-1 multiple times. He does have a car which he has been slieeping in, states he has kept heat on. He does not have family/friend to stay with. He has reached out to local assistant public defender programs prior to today to help with financial hardship, housing. He states he did not hear back today. He will call again tomorrow. I have asked care management ot also reach out to him tomorrow to see if they can assist any furhter. Return precautions discussed. Given abx tonight. Gave list of local dentists and asked that he call tomorrow to schedule definitive care. All of his quesitons and concerns were addressed, he is in agreement with this plan. HPI General Mode of arrival: ambulatory. Date/Time Provider Initiated Documentation: 05/03/21 17:57. Limitations to Documentation: no limitations. Information obtained by: patient, RN notes reviewed and old records reviewed. History of Present Illness 35 year old M presents to the emergency department with the chief complaint of right lower dental pain, described as moderate and similar to prior episodes, with intensity rated at 7. Quality is described as aching, and is localized to the mouth. Patient reports no radiation. Patient started experiencing this month(s) (1) and it has been constant (increasing over the past 1-2 days). No relieving factors improve symptom(s), Eating worsens symptoms . Patient notes no other symptoms.. Patient did receive the following treatments prior to arrival, none Related Data Home Medications Medication Instructions Recorded Confirmed ibuprofen 800 mg PO Q8H PRN #30 tab 07/08/20 05/03/21 Narcan 4 mg INTRANASAL Q2-3M PRN #2 ea 09/15/20 05/03/21 penicillin V potassium 500 mg PO QID 6 Days #24 tab 05/03/21 Previous Rx's Medication Instructions Recorded ibuprofen 800 mg PO Q8H PRN #30 tab 07/08/20 Narcan 4 mg INTRANASAL Q2-3M PRN #2 ea 09/15/20 penicillin V potassium 500 mg PO QID 6 Days #24 tab 05/03/21 Allergies Allergy/AdvReac Type Severity Reaction Status Date / Time No Known Allergies Allergy Unverified 05/03/21 17:58 General Stated Complaint: DentalOral SONIA: 4 Review of Systems Constitutional Constitutional: Reports as per HPI, Denies chills, Denies fatigue, Denies fever(s) and Denies headache(s) ENT Ears, Nose, Mouth, and Throat: Reports as per HPI, Reports dental pain, Denies dysphagia, Denies dizziness, Denies otalgia, Denies headache(s), Denies lip swelling, Denies odynophagia and Denies sore throat Cardiovascular Cardiovascular: Reports as per HPI and Denies chest pain Respiratory Respiratory: Reports as per HPI and Denies cough Gastrointestinal Gastrointestinal: Denies dysphagia and Denies odynophagia Integumentary/Breasts Skin/Breast: Reports as per HPI, Denies erythema, Denies rash and Denies skin pain Neurologic Neurologic: Reports as per HPI, Denies dizziness and Denies headache(s) Endocrine Endocrine: Denies fatigue Allergic/Immunologic Allergic/Immunologic: Denies lip swelling [facility] Medical History HTN (hypertension) Surgical History No significant past surgical history Social History Smoking/Tobacco Use Status: Current every day Tobacco Type: cigarettes Smoking risk assessment performed?: Yes Alcohol Intake: former Drug use: Current Sobriety Substance use type: marijuana, IV drugs and methamphetamine Details: Occasional marijuana Current gender identity: male Do you feel safe at home: Yes Do you feel safe in your relationship?: Yes Exam Const General: cooperative, healthy appearing, comfortable, no acute distress, well developed and well groomed Nutritional Appearance: average body habitus and well nourished Orientation: alert and awake [facility] Head: normal to inspection, normocephalic and abrasion (healing abrasion upper left forehead, no evidence of infection) Ears: hearing grossly normal bilaterally, external ears normal and TM's normal bilaterally General nose exam: external nose normal and nares normal Face and sinus: normal facial exam, sinuses nontender and face symmetric Mouth: oral mucosae normal, lip normal, tongue normal, oropharynx normal, no audible dysphonia, no trismus and No restricted motion Teeth and gingiva: poor dentition (fractured right lower tooth, area of pain buccally, no swelling) and other (area of pain is red. No fluctuance to suggest abscess) Throat: posterior oropharynx normal, tonsils normal and uvula midline Eyes General: appearance normal, both eyes and all related structures Neck Neck: normal visual inspection, full ROM, no lymphadenopathy, supple and no anterior neck swelling Resp Effort & Inspection: normal respiratory effort, able to speak in complete sentences and no respiratory distress Auscultation: clear to auscultation bilaterally, no rales, no rhonchi and no wheezes Cardio Rate: regular rate Rhythm: regular rhythm Heart Sounds: S1 normal and S2 normal Skin General skin exam: no rashes or lesions noted Trauma: no lacerations or abrasions Neuro General: patient alert and patient awake Cognition: normal cognition Speech: speech normal Gait: normal gait Psych Appearance: grossly normal and well kempt Mental Status: mental status grossly normal Speech and Movement: speech and movement normal Course Vital Signs Vital signs: Vital Signs Temperature 36.4 C L 05/03/21 17:56 Pulse 88 05/03/21 17:56 Respiratory Rate 18 05/03/21 17:56 Blood Pressure 146/79 H 05/03/21 17:56 Pulse Oximetry 100 05/03/21 17:56 Temperature 36.4 C L 05/03/21 17:56 Temperature Source Temporal Artery Scan 05/03/21 17:56 Pulse 88 05/03/21 17:56 Respiratory Rate 18 05/03/21 17:56 Blood Pressure 146/79 H 05/03/21 17:56 Pulse Oximetry 100 05/03/21 17:56 Oxygen Delivery Method Room Air 05/03/21 17:56 Oxygen Flow Rate 0 05/03/21 17:56 Pain Level 7 05/03/21 17:56
[2021-05-03] MEDS: Penicillin V POTASSIUM 500 MG TAB PO (19:46)
[2021-05-03] MEDS: Penicillin V POTASSIUM 500 MG TAB, 4 TABS/BTL PO (19:47)
--- NOTE | 2021-05-03 20:02 | NUR.NOTE ---
Referral to Care Management to establish pcp routinely.Nursing Note:
== END 2021-05-03 19:51 | disposition home or self-care (01) ==
PROVIDERS: Emergency Provider Physician Assistant
DX: K04.7 Periapical abscess without sinus (principal)
CPT/HCPCS: 99283